=== PATIENT | male | born 1950 | race Caucasian/White ===

== ENCOUNTER → 2018-09-07 | Day surgery (SDC) | payer BC ==
[2018-09-03 13:34] VITALS: BMI 17.4
[~2018-09-07] MED LIST: LABETALOL 5 MG/ML VIAL MDV IV ONE; LABETALOL SYRINGE 5 MG/ML IV ONE; LACTATED RINGERS 1,000 ML IV SCH; LIDOCAINE 1% 20 ML VIAL (10MG/ML) FOR IV START INTRADERMA PRN; PROPOFOL 10 MG/ML 20 ML VIAL IV ONE; hydrALAZINE HCL 20 MG/ML 1 ML VIAL IVP ONE
[2018-09-07 11:11] VITALS: TEMP 97.5
--- NOTE | 2018-09-07 11:56 | P.PCN ---
Date of Procedure: 09/07/18 Procedure(s) Performed: Procedure: Total colonoscopy. Preoperative diagnosis: Positive cologuard. Postoperative diagnosis: 1. Sigmoid diverticulosis with no evidence of acute diverticulitis or strictures. 2. No polyps or cancer. 3. Low-grade internal hemorrhoids without bleeding at the time of this exam. Preparation: HalfLytely prep. Sedation: Was provided by anesthesia. Brief clinical history: The patient is a 68-year-old male who is scheduled for this evaluation because of positive cologuard. The patient has no abdominal complaints, over to bleeding or anemia. He has no upper GI symptoms. There is no family history of colon cancer. This would be his first colonoscopy. Procedure: With the patient on his left lateral decubitus position and after informed consent and adequate sedation, the perianal area was inspected and it did not show any fissures or fistulas. There were no masses felt on digital rectal examination. The Olympus CFH 190L video colonoscope was then inserted in the rectum in the usual fashion and advanced to the cecum. The preparation on the right side was less than ideal, however, I was able to cleanse that area with satisfactory results. There were multiple diverticular orifices seen scattered in the sigmoid, but there was no evidence of acute diverticulitis or strictures. The mucosa appeared healthy. No significant polyps or tumors were seen. I retroflexed the endoscope in the rectum before the endoscope was withdrawn. Low-grade internal hemorrhoids were noted with no evidence of bleeding. The patient tolerated the procedure well. Plan: The patient was reassured. Discussed dietary measures and local care for hemorrhoids. He will follow up with you as planned and I recommended repeat exam in 5 years.
[2018-09-07 12:31] VITALS: BP 166/85; PULSE 77; RESP 16
== END | disposition home or self-care (01) ==
LOC: ORWHC2ENDO 10:47
DX: K57.30 Diverticulosis of large intestine without perforation or abscess without bleeding (principal); K64.8 Other hemorrhoids; I25.10 Atherosclerotic heart disease of native coronary artery without angina pectoris; J44.9 Chronic obstructive pulmonary disease, unspecified; F17.210 Nicotine dependence, cigarettes, uncomplicated; I73.9 Peripheral vascular disease, unspecified; E07.9 Disorder of thyroid, unspecified; I10 Essential (primary) hypertension; M19.90 Unspecified osteoarthritis, unspecified site; Z86.718 Personal history of other venous thrombosis and embolism; Z95.1 Presence of aortocoronary bypass graft; Z88.5 Allergy status to narcotic agent; Z91.040 Latex allergy status; Z91.048 Other nonmedicinal substance allergy status; Z79.82 Long term (current) use of aspirin; Z86.73 Personal history of transient ischemic attack (TIA), and cerebral infarction without residual deficits; Z79.02 Long term (current) use of antithrombotics/antiplatelets; Z79.899 Other long term (current) drug therapy
CPT/HCPCS: 45378; J0360; J2704

== ENCOUNTER → 2018-09-24 | Outpatient (CLI) | payer BC ==
[2018-09-24 17:14] LABS: LDL Cholesterol,Calculated 124.2 mg/dL (0.0-131.0); VLDL Calculation 11.8 mg/dL (5.00-40.00)
== END | disposition home or self-care (01) ==
LOC: LABWHC1 09:33
PROVIDERS: ATTEND Internal Medicine Cardiovascular Disease
DX: I25.10 Atherosclerotic heart disease of native coronary artery without angina pectoris (principal)
CPT/HCPCS: 36415; 80061; 82550; 84450; 84460

== ENCOUNTER → 2022-05-09 | Outpatient (CLI) | payer MEDICARE ==
[2022-05-10 05:03] LABS: Prostate Specific Antigen 3.7 ng/mL (0.00-6.50); T4, Free (Free Thyroxine) 1.43 ng/dL (0.800-1.800)
[2022-05-10 05:05] LABS: HCT 40.8 % (39.6-50.0); HGB 13.4 g/dL (13.0-17.0); MCH 30.7 pg (27.0-32.0); MCHC 32.8 g/dL (32.0-37.0); MCV 93.4 fL (80.0-97.0); Mean Platelet Volume 9.8 fL (9.5-12.2); NRBC Per 100 WBC 0 /100 WBCS (0.0-0.0); Platelet Count 428 X 10*3/uL (140-440); RBC 4.37 X 10*6/uL (4.40-5.60); RDW 15.2 % (11.5-14.5); WBC 10.35 X 10*3/uL (4.50-10.00)
== END | disposition home or self-care (01) ==
LOC: LABWHC1 16:09
PROVIDERS: ATTEND Internal Medicine
DX: R63.4 Abnormal weight loss (principal)
CPT/HCPCS: 36415; 84153; 84439; 84443; 84481; 85027